=== PATIENT | female | born 1945 | race Two or more races ===

== ENCOUNTER → 2024-12-12 | Outpatient (CLI) | payer MEDICARE, SELFPAY ==
--- NOTE | 2024-12-12 12:40 | XR_ITS ---
Examination: Bone densitometry Date and time of exam:December 12, 2024 1308 hours INDICATIONS: Menopause age 48 diabetic, family history father hip fracture, personal history osteoporosis Technique: Lumbar spine and hip total bone mineralization values of an calculated. Peak reference and age match control results have been displayed. Findings: Lumbar spine total bone mineralization is0.611 gm/cm2. This is 4.0 standard deviations below peak reference. This is 1.2 standard deviations below age-matched controls. Hip total bone mineralization is 0.743 gm/cm2 This is 1.6 standard deviations below peak reference. This is 0.5 standard deviations above age-matched controls Impression: There is osteoporosis based on lumbar spine measurements. There is osteoporosis based on hip measurements Lumbar mineralization is increased 1.9% compared with July 08, 2022 Hip mineralization is increased 2.6% compared with July 08, 2022
== END | disposition home or self-care (01) ==
PROVIDERS: PCP Nurse Practitioner Family; Referring Provider Nurse Practitioner Family; Visit Provider Nurse Practitioner Family
DX: M81.0 Age-related osteoporosis without current pathological fracture (principal)
CPT/HCPCS: 77080